=== PATIENT | male | born 1985 | race Native Hawaiian/Other Pacific Islander ===

== ENCOUNTER 2016-06-30 09:37 | Emergency (ER) | payer OTHER, BC ==
[~2016-06-30] VITALS: Ht 175.3 cm; Wt 86.2 kg
[~2016-06-30 09:37] MED LIST: DICL1GEL2 TOP; MEDROL DOSEPAK4 MG OR; MOBIC15 MG PO
[2016-06-30 09:49] VITALS: BP 150/97; TEMP 98.5
== END 2016-06-30 12:05 | disposition home or self-care (01) ==
LOC: ED 09:37
DX: S61.531A Puncture wound without foreign body of right wrist, initial encounter (principal); W46.0XXA Contact with hypodermic needle, initial encounter; Z29.8 Encounter for other specified prophylactic measures; Z11.4 Encounter for screening for human immunodeficiency virus [HIV]; Y35.491A Legal intervention involving other sharp objects, law enforcement official injured, initial encounter
CPT/HCPCS: 36415; 80074; 86703; 86706; 90715; 99283; G0432